=== PATIENT | male | born 1940 | race Caucasian/White ===

== ENCOUNTER 2019-01-29 09:27 | Outpatient (CLI) | payer MEDICARE ==
--- NOTE | 2019-01-29 11:35 | MRI ---
MRI LUMBAR SPINE WITH AND WITHOUT CONTRAST: DATE: 01/29/2019 COMPARISON: None. HISTORY: Low back pain, bilateral hip pain with bilateral foot numbness. TECHNIQUE: Multiplanar multisequence MR imaging of the lumbar spine is obtained with and without cont rast. FINDINGS: The sagittal STIR imaging demonstrates no suspicious focal area of osseous marrow edema. Multilevel postoperative fusion hardware noted posteriorly at the L3, L4, and L5 levels. Intervertebr al disc device noted at L4-5. On the basis of 5 lumbar type vertebral bodies, the conus medullaris terminates at the T12-L1 level. T12-L1: There is disc space narrowing, disc desiccation, and disc bulge. There is prominent bilateral facet hypertrophy. There is moderate central canal stenosis and mild/moderate bilateral neural foraminal stenosis. L1-2: There is disc desiccation and bilateral facet hypertrophy, right greater than left. There is mild central canal stenosis, moderate right lateral recess stenosis, and mild/moderate bilat eral neural foraminal stenosis. L2-3: There is disc space narrowing and disc desiccation with disc bulge. There is severe central can al stenosis. There is prominent bilateral facet hypertrophy with severe left and moderate/severe right neural foraminal stenosis. L3-4: There is disc desiccation and prominent bilateral facet hypertrophy. Mild right and moderate le ft neural foraminal stenosis. No central canal stenosis. L4-5: No central canal stenosis. Osseous fusion noted at the intervertebral disc level. Bilateral fac et hypertrophy. Mild left neural foraminal stenosis. L5-S1: Prominent bilateral facet hypertrophy. Mild bilateral neural foraminal stenosis. No significan t central canal stenosis. Small postoperative fluid collection noted posterior to the thecal sac at the L4 level measuring 2.2 cm in craniocaudal dimension, 2.3 cm in transverse dimension, and 1.1 cm in AP dimension. Postcontrast imaging demonstrates no abnormal enhancement involving the contents of the thecal sac. T here is no abnormal enhancement involving the osseous structures of the lumbar spine. The imaged retroperitoneal structures demonstrate no acute findings. 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 The most significant stenosis is noted at the L2-3 level as described above. This includes severe central canal stenosis and significant bilateral neural foraminal stenosis, left greater than right. Transcribed Date/Time: 01/29/2019 11:53 AM
[2019-01-29] MEDS ORDERED: Gadobenate Dimeglumine 529 MG/1 ML (20ML VIAL) ONE (13:49)
== END 2019-01-29 09:28 | disposition home or self-care (01) ==
LOC: BICMRI 09:27
PROVIDERS: ATTEND Neurological Surgery
DX: M54.5 Low back pain (principal); Q76.2 Congenital spondylolisthesis; M47.816 Spondylosis without myelopathy or radiculopathy, lumbar region; M48.061 Spinal stenosis, lumbar region without neurogenic claudication; Z98.1 Arthrodesis status
CPT/HCPCS: 72158; 82565; A9577